=== PATIENT | female | born 1945 | race Caucasian/White ===

== ENCOUNTER 2019-02-01 08:57 | Outpatient (CLI) | payer MEDICARE, OTHER ==
[2019-02-01] MEDS ORDERED: Gadobenate Dimeglumine 529 MG/1 ML (20ML VIAL) ONE (09:00)
--- NOTE | 2019-02-01 12:02 | MRI ---
Thoracic spine MRI noncontrast: CLINICAL HISTORY: Thoracic spine pain, chronic No prior imaging comparison FINDINGS: Incidental note of multilevel cervical spine degenerative change. No acute marrow edema, compression fracture or significant subluxation. The thoracic spinal cord reve als no obvious cord signal abnormality. T1-2: Mild disc bulge without significant central canal or foraminal stenosis. T2-3: Right paracentral disc protrusion produces mild right ventral hemicord effacement. No significa nt foraminal stenosis. T3-4: Broad-based disc osteophyte produces mild effacement of ventral thecal sac, approaching but not significantly deforming the ventral thoracic spinal cord. T4-5: No significant central canal or foraminal stenosis. T5-6: Mild disc bulge with slight effacement of ventral thecal sac. T6-7, T7-8, T8-9, T9-T10, T10-11, and T11-T12 levels reveal no significant compromise of central michael l or neural foramina. Incidental note of T2 hyperintensity localizing to the hepatic parenchyma, and additional T2 hyperint ensities of the right kidney. These findings indicate small cysts although are incompletely characterized on the basis of this exam. IMPRESSION: Multilevel degenerative change of the thoracic spine as outlined above. Transcribed Date/Time: 02/01/2019 12:41 PM
--- NOTE | 2019-02-01 14:17 | MRI ---
MRI LUMBAR SPINE WITH AND WITHOUT CONTRAST: Technique: Multiplanar, multisequence MRI images were obtained of the lumbar spine. Post contrast sergio ges were obtained after administration of 16 cc MultiHance IV. Indications: Spinal stenosis lumbar region. Back pain. Comparison: MRI lumbar spine 04-09-15 FINDINGS: Lumbar vertebrae maintain normal height and alignment. Degenerative disc changes are seen at all leve ls. L1-2: There is a diffuse disc bulge which is more prominent than on the prior study. There is slightl y more pronounced to the left with left paracentral and lateral extension of the an asymmetric bulge/ protrusion. Facet hypertrophy. Posterior epidural fat. These changes result in mild central canal katie nosis. Left foraminal encroachment due to asymmetric bulge. L2-3: Disc bulge is seen with prominent facet and ligamentous hypertrophy and posterior epidural fat. These changes compress the thecal sac resulting in moderate central canal stenosis. Bilateral forami nal stenosis. L3-4: Broad based disc bulge similar to the prior exam. Facet hypertrophy. Mild to moderate central c anal stenosis. Right foraminal stenosis due to hypertrophic change. Pedicle screws are seen at L4-5. Partial fusion at L4-5 with interbody implant. No residual disc. Pos terior laminectomy change. Facet hypertrophy. No significant central canal stenosis. Bilateral forami nal narrowing due to hypertrophic change. L5-S1: No significant disc bulge or protrusion. Prominent facet hypertrophy. No central canal or sign ificant foraminal stenosis. IMPRESSION: 1. Post op changes at L4-5 as described above. 2. Central canal and foraminal stenosis at other levels as noted above. POS: [facility]
== END 2019-02-01 08:58 | disposition home or self-care (01) ==
LOC: SCSMRI 08:57
PROVIDERS: ATTEND Nurse Practitioner Family
DX: M48.062 Spinal stenosis, lumbar region with neurogenic claudication (principal); M54.6 Pain in thoracic spine; M47.814 Spondylosis without myelopathy or radiculopathy, thoracic region; Z98.890 Other specified postprocedural states
CPT/HCPCS: 72146; 72158; 82565; A9577

== ENCOUNTER 2019-02-17 09:23 | Outpatient (CLI) | payer MEDICARE, OTHER ==
--- NOTE | 2019-02-17 09:47 | RAD ---
EXAM: Lumbar spine 3 views including flexion and extension views HISTORY: Back pain COMPARISON: None FINDINGS: Postop laminectomy, pedicle screw placement, and intradiscal prosthesis changes at L4-L5. No abnormal translation between flexion and extension. No evidence for acute fracture or dislocation involving the visualized spine. There are disc osteophytosis and facet arthrosis changes. No evidence for malalignment. No evidence for a bone lesion. IMPRESSION: Spondylosis. Postoperative changes. No acute process.
== END 2019-02-17 09:24 | disposition home or self-care (01) ==
LOC: TBSIIMAG 09:23
PROVIDERS: ATTEND Neurological Surgery
DX: M54.5 Low back pain (principal); M47.816 Spondylosis without myelopathy or radiculopathy, lumbar region; Z98.890 Other specified postprocedural states
CPT/HCPCS: 72100

== ENCOUNTER 2020-09-27 06:26 | Outpatient (CLI) | payer MEDICARE, OTHER ==
[2020-09-27 10:40] LABS: Hemoglobin 12.8 g/dL (12.0-16.0); Mean Corpuscular Hemoglobin 30.2 PG (27.0-33.0); Mean Corpuscular Volume 91.5 fl (80.0-100.0); Mean Platelet Volume 10.3 fl (7.4-10.4); Platelet Count 211 10x3/uL (130-400); RBC Distribution Width 12.5 % (11.5-14.5); Red Blood Cell (RBC) Count 4.24 10x6/uL (3.90-5.20); White Blood Cell (WBC) Count 5.2 10x3/uL (4.5-11.0)
[2020-09-27 10:54] LABS: Anion Gap 13 mmol/L (10-20); BUN (Urea Nitrogen) 14 mg/dL (9.8-20.1); Calc. Creatinine Clearance 0 mL/min (70-130); Calcium 9.4 mg/dL (7.8-10.44); Carbon Dioxide 28 mmol/L (23-31); Chloride 104 mmol/L (98-107); Glucose 101 mg/dL (83-110); Potassium 4.4 mmol/L (3.5-5.1); Sodium 141 mmol/L (136-145)
[2020-09-27 22:36] LABS: SARS-CoV-2 MS2 Positive; SARS-CoV-2 N Gene Negative; SARS-CoV-2 S Gene Negative; SARS-CoV-2 by NAA Not Detected (NotDetected); SARS-CoV-2 orf1ab Negative
== END 2020-09-27 06:27 | disposition home or self-care (01) ==
LOC: LABBT 06:26
PROVIDERS: ATTEND Neurological Surgery
DX: Z01.812 Encounter for preprocedural laboratory examination (principal); M48.061 Spinal stenosis, lumbar region without neurogenic claudication; Z20.828 Contact with and (suspected) exposure to other viral communicable diseases
CPT/HCPCS: 80048; 85027; U0003; 87635

== ENCOUNTER 2020-10-02 09:26 | Day surgery (SDC) | payer MEDICARE, OTHER ==
[2020-10-01 13:34] VITALS: BMI 30.9
--- NOTE | 2020-10-01 17:24 | HP ---
HISTORY OF PRESENT ILLNESS: Ms. King is a 74-year-old woman, known to us for prior lumbar fusion, who returns now with symptoms of claudication and some components of radiculopathy. She has a new imaging from [facility] that reveals severe lumbar stenosis at the level above her prior fusion site. This has certainly explained the symptoms that she is experiencing. PAST MEDICAL HISTORY: Significant for hypertension, anxiety, hypothyroidism, hyperlipidemia, unspecified bladder problems. CURRENT MEDICATIONS: 1. Vitamin D. 2. Cetirizine. 3. Potassium. 4. Aspirin. 5. Oxybutynin. 6. Duloxetine. 7. Rosuvastatin. 8. Isosorbide mononitrate. 9. Metamucil. 10. Pepcid. 11. Irbesartan. 12. Synthroid. 13. Bupropion. 14. Spironolactone. 15. Amlodipine. 16. Clonazepam. 17. Fluticasone. 18. Primidone. 19. Lorazepam p.r.n. PAST SURGICAL HISTORY: Lumbar spinal fusion. ALLERGIES: NO KNOWN DRUG ALLERGIES. PHYSICAL EXAMINATION: Deferred for telehealth visit. ASSESSMENT: Lumbar spinal stenosis. PLAN: Dr. Berg met with the patient, reviewed imaging, and advocated for L2-L3 decompression. He explained the patient risks, benefits, and alternatives to the procedure. The patient expressed understanding and elected to move forward with surgery as discussed. I do believe that the patient is mentally competent and capable of making medical decisions for herself. We will move forward with surgery as planned. Job ID: [id number]
[2020-10-02] MEDS ORDERED: PROPOFOL 200 MG/20 ML VIAL ONE (10:47)
[2020-10-02] MEDS ORDERED: Rocuronium Bromide 10 MG/ML (10ML VIAL) ONE (10:47)
[2020-10-02] MEDS ORDERED: PHENYLEPHRINE-NS 100 MCG/ML 10 ML SYRINGE ONE (10:47)
[2020-10-02] MEDS ORDERED: Lidocaine 1% PF 5 ML VIAL ONE (10:47)
[2020-10-02] MEDS ORDERED: Ondansetron PF 4 MG/2 ML Vial ONE (10:47)
[2020-10-02] MEDS ORDERED: Ketorolac Tromethamine 30 MG/ML VIAL ONE (10:47)
[2020-10-02] MEDS ORDERED: Dexamethasone 20 MG/5 ML VIAL ONE (10:47)
[2020-10-02] MEDS ORDERED: ePHEDrine 50 MG/ML VIAL ONE (10:47)
[2020-10-02] MEDS ORDERED: Bupivacaine PF 0.5% 30 ML VIAL ONE (10:56)
[2020-10-02] MEDS ORDERED: EPINEPHrine 1 MG/ML AMP ONE (10:56)
[2020-10-02] MEDS ORDERED: Thrombin 5000 UNITS/5 ML VIAL ONE (10:56)
[2020-10-02] MEDS ORDERED: Fentanyl 100 MCG/2 ML VIAL ONE ×2 (11:20→13:22)
[2020-10-02] MEDS ORDERED: SUGAMMADEX SODIUM 200 MG/2 ML VIAL ONE (12:08)
[2020-10-02] MEDS ORDERED: HYDROmorphone 0.5 MG/0.5 ML SYRINGE ONE (13:10)
--- NOTE | 2020-10-02 13:47 | OP ---
DATE OF PROCEDURE: 10/02/2020 LOCATOR SPECIALIST: Jack Jennings PA-C. INDICATION: Pain. DIAGNOSIS: Neurogenic claudication secondary to lumbar stenosis. ANESTHESIA: General. PROCEDURE PERFORMED: L2-3 decompression. DESCRIPTION OF PROCEDURE: The patient was brought into the operating room and placed under general anesthesia. She was flipped from the supine to prone position on the operating room table. A linear incision was planned over the L2-3 segment. After prepping and draping and after an appropriate preoperative pause, the incision was created. The soft tissues were swept away from midline. A self-retaining retractor was placed and an Adson rongeur was used to remove the spinous process along the inferior aspect of L2 and the superior aspect of L3. High-speed cutting drill bit as well as 2, 3, and 4 mm Kerrisons were used to perform a laminectomy. The laminectomy was extended laterally to encompass the medial aspect of the facet joint until the lateral recesses were decompressed. The wound was then copiously irrigated. Hemostasis was maintained throughout. The wound was then closed in anatomic layers, and a pressure dressing was applied. There were no known procedural complications. Job ID: [id number]
== END 2020-10-02 16:08 | disposition home or self-care (01) ==
LOC: SDC 09:26
PROVIDERS: ATTEND Neurological Surgery
PROC: 01NB0ZZ Release Lumbar Nerve, Open Approach (ICD-10-PCS; principal; 2020-10-02)
DX: M48.062 Spinal stenosis, lumbar region with neurogenic claudication (principal); M54.16 Radiculopathy, lumbar region; I10 Essential (primary) hypertension; F41.9 Anxiety disorder, unspecified; E03.9 Hypothyroidism, unspecified; E78.5 Hyperlipidemia, unspecified; G47.33 Obstructive sleep apnea (adult) (pediatric); I25.10 Atherosclerotic heart disease of native coronary artery without angina pectoris; F32.9 Major depressive disorder, single episode, unspecified; Z79.82 Long term (current) use of aspirin; Z79.899 Other long term (current) drug therapy; Z98.1 Arthrodesis status
CPT/HCPCS: 76000; 93005; 93010; J0171; J0690; J1100; J1170; J1885; J2405; J2704; J3010; J3490; S0020

== ENCOUNTER → 2021-02-07 | Day surgery (SDC) | payer MEDICARE, OTHER | LOC: SDC 07:43 | PROVIDERS: ATTEND Internal Medicine Gastroenterology | DX: R13.10 Dysphagia, unspecified (principal) | CPT/HCPCS: 91010 ==